=== PATIENT | female | born 1950 | race Caucasian/White ===

== ENCOUNTER 2017-07-10 13:08 | Emergency (ER) | END 2017-07-10 15:38 | disposition home or self-care (01) ==

== ENCOUNTER 2017-08-12 12:02 | Emergency (ER) | END 2017-08-12 16:26 | disposition home or self-care (01) ==

== ENCOUNTER 2018-10-11 00:06 | Emergency (ER) | payer MEDICARE, OTHER ==
[~2018-10-11] VITALS: Ht 160 cm; Wt 68.6 kg
[~2018-10-11 00:06] MED LIST: CEPH500C PO; IBUP-1542 PO; PHEN-537 PO
[2018-10-11 00:09] VITALS: Ht 160 cm; Wt 68.6 kg
[2018-10-11] MEDS ORDERED: KETOROLAC 30 MG INJ IV STA (01:49)
[2018-10-11] MEDS ORDERED: FAMOTIDINE 20 MG INJ IV STA (01:49)
[2018-10-11] MEDS ORDERED: LACTATED RINGER'S 1,000 ML IV STA (01:49)
[2018-10-11] MEDS ORDERED: ONDANSETRON 4 MG INJ IV STA (01:49)
--- NOTE | 2018-10-11 03:52 | ERD ---
ER Documentation Chief Complaint Chief Complaint Pt reports ABD pain x 3 days, pt reports dizziness sometimes HPI This is a 68-year-old female who presents to the emergency room for evaluation of painful urination, frequent urination, and lower abdominal pain for the past 3 days. The patient denies being on any medications, she denies any fevers chills nausea vomiting and came to the ER today for evaluation of her symptoms ROS All systems reviewed and are negative except as per history of present illness. Medications Home Meds Active Scripts Ibuprofen* (Ibuprofen*) 600 Mg Tablet, 600 MG PO Q6H PRN for PAIN, #20 TAB Prov:SALOMON HOWARD MD 08/12/17 Allergies Allergies: Coded Allergies: No Known Allergy (Unverified , 08/12/17) PMhx/Soc History of Surgery: Yes (HYSTERECTOMY, CS.) Anesthesia Reaction: No Hx Neurological Disorder: No Hx Respiratory Disorders: No Hx Cardiac Disorders: No Hx Psychiatric Problems: No Hx Miscellaneous Medical Probl: No Hx Alcohol Use: No Hx Substance Use: No Hx Tobacco Use: No Smoking Status: Never smoker Physical Exam Vitals Vital Signs Date Temp Pulse Resp B/P (MAP) Pulse Ox O2 O2 Flow FiO2 Time Delivery Rate 10/11/18 97.9 74 16 196/77 97 00:09 (116) Physical Exam INITIAL VITAL SIGNS: Reviewed by me GENERAL: The patient is well developed and appropriate for usual state of health in no apparent distress HEENT: Pupils equal, round, and reactive to light. EOMI. There is no scleral icterus. NECK: C-spine is soft and supple, there is no meningismus. There is no cervic al lymphadenopathy. LUNGS: Clear to auscultation bilaterally. There are no rales, wheezes or rhonch i. HEART: Regular rate and rhythm, no murmurs, clicks, rubs or gallops. ABDOMEN: Mild suprapubic tenderness to palpation, otherwise soft, non-tender, non-distended. There are bowel sounds in all four quadrants. No rebound or guarding. EXTREMITIES: There is no peripheral cyanosis or edema. No focal swelling or erythema. NEUROLOGICAL: The patient moves all four extremities with 5/5 strength. C ranial nerves II - XII are intact. Normal gait. Alert and oriented SKIN: There is no apparent rash or petechiae. HEME/LYMPHATIC: There is no evidence of excessive bruising or lymphedema. PSYCHIATRIC: The patient does not appear anxious or depressed. Result Diagram: 10/11/1821310/11/184 Results 24 hrs Laboratory Tests Test 10/11/18 02:14 White Blood Count 10.3 10^3/ul Red Blood Count 4.69 10^6/ul Hemoglobin 14.1 g/dl Hematocrit 41.9 % Mean Corpuscular Volume 89.3 fl Mean Corpuscular Hemoglobin 30.1 pg Mean Corpuscular Hemoglobin Concent 33.7 g/dl Red Cell Distribution Width 12.7 % Platelet Count 299 10^3/UL Mean Platelet Volume 10.6 fl Immature Granulocytes % 0.500 % Neutrophils % 61.3 % Lymphocytes % 26.0 % Monocytes % 9.3 % Eosinophils % 2.4 % Basophils % 0.5 % Nucleated Red Blood Cells % 0.0 /100WBC Immature Granulocytes # 0.050 10^3/ul Neutrophils # 6.3 10^3/ul Lymphocytes # 2.7 10^3/ul Monocytes # 1.0 10^3/ul Eosinophils # 0.3 10^3/ul Basophils # 0.1 10^3/ul Nucleated Red Blood Cells # 0.0 10^3/ul Urine Color YELLOW Urine Clarity CLEAR Urine pH 6.0 Urine Specific Carver 1.023 Urine Ketones NEGATIVE mg/dL Urine Nitrite NEGATIVE mg/dL Urine Bilirubin NEGATIVE mg/dL Urine Urobilinogen NEGATIVE mg/dL Urine Leukocyte Esterase TRACE Art/ul Urine Microscopic RBC 2 /HPF Urine Microscopic WBC 1 /HPF Urine Squamous Epithelial Cells FEW /HPF Urine Bacteria FEW /HPF Urine Mucus FEW /HPF Urine Hemoglobin 1+ mg/dL Urine Glucose NEGATIVE mg/dL Urine Total Protein NEGATIVE mg/dl Sodium Level 141 mmol/L Potassium Level 4.2 mmol/L Chloride Level 107 mmol/L Carbon Dioxide Level 25 mmol/L Anion Gap 9 Blood Urea Nitrogen 20 mg/dl Creatinine 0.65 mg/dl Est Glomerular Filtrat Rate mL/min > 60 mL/min Glucose Level 110 mg/dl Calcium Level 9.2 mg/dl Total Bilirubin 0.2 mg/dl Direct Bilirubin 0.00 mg/dl Indirect Bilirubin 0.2 mg/dl Aspartate Amino Transf (AST/SGOT) 38 IU/L Alanine Aminotransferase (ALT/SGPT) 33 IU/L Alkaline Phosphatase 103 IU/L Total Protein 7.6 g/dl Albumin 4.2 g/dl Globulin 3.40 g/dl Albumin/Globulin Ratio 1.23 Lipase 129 U/L Current Medications Medications Dose Sig/Fadia Start Time Status Last (Trade) Ordered Route PRN Stop Time Admin Dose Reason Admin Lactated 1,000 ml @ Q1H STAT 10/11/18 DC 10/11/18 Ringer's 1,000 mls/hr IV 01:49 10/11/18 02:19 02:48 Ondansetron 4 mg ONCE STAT 10/11/18 DC 10/11/18 HCl (Zofran IV 01:49 10/11/18 02:19 Inj) 01:50 Famotidine 20 mg ONCE STAT 10/11/18 DC 10/11/18 (Pepcid Iv) IV 01:49 10/11/18 02:19 01:50 Ketorolac 30 mg ONCE STAT 10/11/18 DC 10/11/18 Tromethamine IV 01:49 10/11/18 02:19 (Toradol) 01:50 Procedures/MDM CT abdomen pelvis without: No definite new acute intra-abdominal or pelvic abnormality is identified. There is again multifocal colonic diverticulosis without pericolonic fat stranding to suggest diverticulitis seen. No evidence of intestinal obstruction or appendicitis, free air or abscess. No urinary tract stone or secondary signs of urinary tract obstruction. Previous hepatic steatosis has resolved. This 68-year-old female presents to the ER for evaluation of painful urination frequent urination. The patient had lab work drawn which is normal, urinalysis has some white blood cells in the urine and CT of her abdomen pelvis is negative. The patient was given 1 tab of Keflex p.o. in the emergency room, her pain is controlled with Toradol. She will be discharged home with a prescription for Keflex and Pyridium. The patient was given strict return precautions and does feel comfortable with her plan of care. Differential diagnoses entertained was broad with potential high acuity. Patient has been evaluated for appendicitis, cholecystitis, and other high risk medical and surgical causes of abdominal pain. Ultimately the patient's evaluation is nondiagnostic. Based on the patient's lack of risk factors, as well as the patient's clinical, laboratory, and imaging data, the patient appears to be low risk for these high risk causes of abdominal pain. Departure Diagnosis: Primary Impression: Abdominal pain Additional Impression: Dysuria Condition: JULIANO Vance DO Oct 11, 2018 03:52
[2018-10-11 04:16] VITALS: BP 137/80; PULSE 65; RESP 16
== END 2018-10-11 04:20 | disposition home or self-care (01) ==
LOC: E/R 00:06
DX: R10.30 Lower abdominal pain, unspecified (principal); R30.0 Dysuria; R40.2142 Coma scale, eyes open, spontaneous, at arrival to emergency department; R40.2362 Coma scale, best motor response, obeys commands, at arrival to emergency department; R40.2252 Coma scale, best verbal response, oriented, at arrival to emergency department
CPT/HCPCS: 74176; 80053; 81001; 83690; 85025; J1885; J2405; J7120; 36415; 96374; 96375